=== PATIENT | male | born 1960 | race Caucasian/White ===

== ENCOUNTER → 2023-08-26 12:48 | Outpatient (BNVA) | payer OTHER, SELFPAY | PROVIDERS: Family Provider Family Medicine; PCP Family Medicine; Visit Provider Otolaryngology | DX: H61.22 Impacted cerumen, left ear (principal); H60.92 Unspecified otitis externa, left ear; R49.0 Dysphonia; K21.9 Gastro-esophageal reflux disease without esophagitis; E66.01 Morbid (severe) obesity due to excess calories; Z68.41 Body mass index [BMI] 40.0-44.9, adult | CPT/HCPCS: 31575; 69210; 99204; 99205 ==

== ENCOUNTER → 2023-10-21 14:07 | Outpatient (BNVA) | payer OTHER, SELFPAY | PROVIDERS: Family Provider Family Medicine; PCP Family Medicine; Visit Provider Otolaryngology | DX: K21.9 Gastro-esophageal reflux disease without esophagitis (principal); H60.92 Unspecified otitis externa, left ear | CPT/HCPCS: 99212 ==